=== PATIENT | female | born 1970 | race Caucasian/White ===

== ENCOUNTER → 2017-02-23 | Day surgery (SDC) | payer OTHER ==
[~2017-02-23] VITALS: Ht 170.2 cm; Wt 84.4 kg
[~2017-02-23] MED LIST: LISINOPRIL10 M1 PO; PERCOCET 5-3251 EACH PO; ZOMIG5 M2 PO
[2017-02-23 06:36] LABS: ABSOLUTE BASOPHIL COUNT 0 /CUMM (0.0-0.2); ABSOLUTE EOSINOPHIL COUNT 0.1 /CUMM (0.0-0.7); ABSOLUTE GRANULOCYTE CT 3.8 /CUMM (1.4-6.5); ABSOLUTE LYMPH COUNT 1.2 /CUMM (1.2-3.4); ABSOLUTE MONOCYTE COUNT 0.4 /CUMM (0.10-0.60); BASOPHIL % 0.7 % (0.0-2.0); EOSINOPHIL % 1.2 % (0-5); GRANULOCYTE % 68.1 % (42.2-75.2); HEMATOCRIT 39.8 % (37-47); MEAN CORPUSCULAR HGB 30.1 PG (27.0-31.0); MEAN CORPUSCULAR HGB CONC 32.9 G/DL (33.0-37.0); MEAN CORPUSCULAR VOLUME 91.7 FL (81.0-99.0); MEAN PLATELET VOLUME 10.6 FL (7.4-10.4); PLATELET COUNT 192 /CUMM (130-400); RBC DISTRIBUTION WIDTH 13.3 % (11.5-14.5); RED BLOOD CELL CT 4.34 /CUMM (4.20-5.40); WHITE BLOOD CELL COUNT 5.5 /CUMM (4.8-10.8)
[2017-02-23 06:45] LABS: PT 10.4 SEC (9.4-12.5); PTT 33 SEC (25-37)
--- NOTE | 2017-02-23 09:42 | Operative Report ---
Operative/Inv Procedure Report Surgery Date: 02/23/17 Name of Procedure: L renal ESWL Pre-Operative Diagnosis: 6 mm left renal calculus Post-Operative Diagnosis: Same Estimated Blood Loss: scant Surgeon/Destination Coordinator: Maximiliano SIDDIQI, KESHA Pierre MD Anesthesia: local monitored anesthesi Drains: None Specimens: None Complications: None Condition: Stable Operative Indication: Left renal calculus with pain Operative/Procedure Note Note: The patient was taken to the lithotripsy room and identified. She's placed in the supine position on the lithotripsy table. A timeout was executed appropriately. The stone was localized to the F2 focal point using fluoroscopy. A surgical pause was executed appropriately. Intravenous sedation was given. Left renal ESWL was then performed. The energy level was started at a low level and gradually increased. A total of 2500 shocks were given. The stone did appear to fragment. Procedure she was taken to the same-day surgery area in stable condition Findings: 6 mm left renal calculus
== END ==
LOC: STS 03:09
PROVIDERS: Urology
DX: N20.0 Calculus of kidney (principal); Z87.442 Personal history of urinary calculi; I10 Essential (primary) hypertension
CPT/HCPCS: 36415; 81025; J2250